=== PATIENT | female | born 1960 | race American Indian/Alaskan Native ===

== ENCOUNTER 2016-10-20 15:49 | Emergency (ER) | payer OTHER ==
[2016-10-20 19:28] VITALS: BP 162/95
[2016-10-20] MEDS ORDERED: TORADOL IM ONE (19:38)
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
== END 2016-10-20 21:24 | disposition home or self-care (01) ==
LOC: ED 15:49
DX: M25.511 Pain in right shoulder (principal); M25.512 Pain in left shoulder; R51 Headache; M54.2 Cervicalgia; I10 Essential (primary) hypertension; G89.29 Other chronic pain; F17.200 Nicotine dependence, unspecified, uncomplicated; V89.2XXA Person injured in unspecified motor-vehicle accident, traffic, initial encounter; Y93.9 Activity, unspecified; Y99.9 Unspecified external cause status; Y92.410 Unspecified street and highway as the place of occurrence of the external cause
CPT/HCPCS: 72125; 96372; 99283; J1885